=== PATIENT | male | born 1985 | race Caucasian/White ===

== ENCOUNTER 2018-07-11 23:38 | Emergency (ER) | payer SELFPAY ==
[~2018-07-11] VITALS: Ht 170.2 cm; Wt 68.0 kg
--- NOTE | 2018-07-12 00:16 | NUR ---
Note roxann in ED - 07/12/18 at 0024 by MAKSIM IV removed. Catheter intact and site benign. Pressure and 4x4 gauze applied to site. No bleeding noted.
--- NOTE | 2018-07-12 00:22 | NUR ---
Patient eloped from facility. ER physician notified.
== END 2018-07-12 00:25 | disposition left against medical advice (07) ==
LOC: ER 23:44
DX: Z53.21 Procedure and treatment not carried out due to patient leaving prior to being seen by health care provider (principal)
CPT/HCPCS: A4663